=== PATIENT | male | born 1970 | race Caucasian/White ===

== ENCOUNTER 2022-09-19 22:20 | Emergency (ER) | payer SELFPAY ==
[2022-09-19 22:21] VITALS: BMI 25.0
--- NOTE | 2022-09-19 22:24 | W.ED.ABDPA2 ---
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
[2022-09-19 22:25] VITALS: BP 143/102; PULSE 63; RESP 18; TEMP 37.2; O2SAT 94
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
[2022-09-19 22:50] LABS: Glucose Point of Care 134 mg/dL (70-110)
[2022-09-19 23:07] VITALS: PULSE 69; RESP 18; O2SAT 94
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
[2022-09-20 00:13] VITALS: RESP 17
[2022-09-20] MEDS: morphine 4 mg/mL SDV 1 mL IVP (00:13)
[2022-09-20] MEDS: ondansetron 2 mg/ML SDV 2 mL 4 MG IVP (00:13)
[2022-09-20 00:52] VITALS: BP 145/72; PULSE 63; O2SAT 93
== END 2022-09-20 00:56 ==
PROVIDERS: Emergency Provider Emergency Medicine; PCP Family Medicine
DX: S06.6XAA Traumatic subarachnoid hemorrhage with loss of consciousness status unknown, initial encounter (principal); S22.5XXA Flail chest, initial encounter for closed fracture; T22.232A Burn of second degree of left upper arm, initial encounter; T22.131A Burn of first degree of right upper arm, initial encounter; S40.812A Abrasion of left upper arm, initial encounter; S40.811A Abrasion of right upper arm, initial encounter; S00.81XA Abrasion of other part of head, initial encounter; S00.91XA Abrasion of unspecified part of head, initial encounter; R41.82 Altered mental status, unspecified; V86.55XA Driver of 3- or 4- wheeled all-terrain vehicle (ATV) injured in nontraffic accident, initial encounter
CPT/HCPCS: 36416; 70450; 71250; 72125; 73070; 74176; 82962; 96374; 96375; 99285; 99291; J2270; J2405